=== PATIENT | male | born 1965 | race Caucasian/White ===

== ENCOUNTER 2019-04-15 14:43 | Emergency (ER) | payer OTHER ==
[~2019-04-15] VITALS: Ht 172.7 cm; Wt 95.5 kg
[2019-04-15] MEDS ORDERED: ONDANSETRON 4 MG INJ IV STA (14:58)
[2019-04-15] MEDS ORDERED: SOD CHLORIDE 0.9% 500 ML IV STA (14:58)
[2019-04-15] MEDS ORDERED: KETOROLAC 15 MG INJ IV STA (14:58)
[2019-04-15] MEDS ORDERED: ALPRAZOLAM 0.25 MG TAB PO ONE (15:00)
--- NOTE | 2019-04-15 15:00 | ERD ---
ER Documentation Chief Complaint Chief Complaint HPI This is a 53-year-old man brought [place] by [employer] officers [place] for c omplaints of body aches and chest pain. Patient is tearful and crying and states his pain is nonexertional nonradiating but located over his lower extremities and left chest. He denies cough, no shortness of breath, no fevers or chills, no vomiting or diarrhea. ROS All systems reviewed and are negative except as per history of present illness. Allergies Allergies: Coded Allergies: No Known Allergy (Unverified , 04/15/19) FmHx Family History: No diabetes Physical Exam Vitals Vital Signs Date Temp Pulse Resp B/P (MAP) Pulse Ox O2 O2 Flow FiO2 Time Delivery Rate 04/15/19 82 18 139/84 98 Room Air 16:33 (102) 04/15/19 98.0 90 18 146/90 97 15:06 (108) Physical Exam GENERAL: Well-developed, well-nourished, tearful and anxious, afebrile HEENT: Moist mucous membranes, pink conjunctiva, no cervical spine tenderness or step-off deformities, no goiter, no jaundice or icterus, extraocular movements intact without pain. No submandibular induration, and no pharyngeal erythema NEURO: Alert and oriented 3, cranial nerves II through XII intact bilaterally, pupils equal round reactive to light, no focal deficits or facial asymmetry, s ensation intact distally Strength 5/5 in upper and lower extremities bilaterally CARDIAC: Regular rate and rhythm, no murmurs rubs or gallops LUNGS: Clear bilaterally no wheezing crackles or stridor ABDOMEN: Soft nontender, no guarding, no rigidity, no rebound, no psoas sign no obturator sign. Normoactive bowel sounds SKIN: Warm and dry to touch, no abrasions, contusions, or hematomas, no lacerati ons, no ecchymosis, no target lesions, and without ulcers EXTREMITIES: No clubbing cyanosis or edema, calves are bilaterally symmetrical, no Homans sign, no popliteal cord sign. Distal pulses equal and bilateral PSYCH: Tearful, anxious Result Diagram: 04/15/19 1512 04/15/19 1512 Results 24 hrs Laboratory Tests Test 04/15/19 15:12 White Blood Count 7.6 10^3/ul Red Blood Count 4.82 10^6/ul Hemoglobin 14.5 g/dl Hematocrit 41.8 % Mean Corpuscular Volume 86.7 fl Mean Corpuscular Hemoglobin 30.1 pg Mean Corpuscular Hemoglobin Concent 34.7 g/dl Red Cell Distribution Width 12.7 % Platelet Count 225 10^3/UL Mean Platelet Volume 9.6 fl Immature Granulocytes % 0.300 % Neutrophils % 57.4 % Lymphocytes % 28.6 % Monocytes % 11.3 % Eosinophils % 2.1 % Basophils % 0.3 % Nucleated Red Blood Cells % 0.0 /100WBC Immature Granulocytes # 0.020 10^3/ul Neutrophils # 4.4 10^3/ul Lymphocytes # 2.2 10^3/ul Monocytes # 0.9 10^3/ul Eosinophils # 0.2 10^3/ul Basophils # 0.0 10^3/ul Nucleated Red Blood Cells # 0.0 10^3/ul Sodium Level 141 mmol/L Potassium Level 3.8 mmol/L Chloride Level 107 mmol/L Carbon Dioxide Level 26 mmol/L Anion Gap 8 Blood Urea Nitrogen 26 mg/dl Creatinine 1.01 mg/dl Est Glomerular Filtrat Rate mL/min > 60 mL/min Glucose Level 139 mg/dl Calcium Level 9.1 mg/dl Total Bilirubin 0.9 mg/dl Direct Bilirubin 0.00 mg/dl Indirect Bilirubin 0.9 mg/dl Aspartate Amino Transf (AST/SGOT) 30 IU/L Alanine Aminotransferase (ALT/SGPT) 29 IU/L Alkaline Phosphatase 80 IU/L Troponin I < 0.012 ng/ml Total Protein 7.3 g/dl Albumin 4.0 g/dl Globulin 3.30 g/dl Albumin/Globulin Ratio 1.21 Lipase 111 U/L Current Medications Medications Dose Sig/Scott Start Time Status Last (Trade) Ordered Route PRN Stop Time Admin Dose Reason Admin Sodium 500 ml @ Q1H STAT 04/15/19 DC 04/15/19 Chloride 500 mls/hr IV 14:58 04/15/19 15:12 15:57 Ondansetron 4 mg ONCE STAT 04/15/19 DC 04/15/19 HCl (Zofran IV 14:58 04/15/19 15:12 Inj) 15:00 Ketorolac 15 mg ONCE STAT 04/15/19 DC 04/15/19 Tromethamine IV 14:58 04/15/19 15:12 (Toradol) 15:00 Alprazolam 0.5 mg ONCE ONCE 04/15/19 DC 04/15/19 (Xanax) PO 15:00 04/15/19 15:12 15:01 Procedures/MDM IV line was established patient was placed on repairer maintenance building rhythm strip revealed a sinus rhythm at about 90 bpm with upright P and T waves. Patient was afebrile EKG performed, read by me: 92 bpm, normal sinus rhythm, normal axis, no acute ST segment changes, narrow QRS complex, with good R-wave progression in precordial leads. One AP view of the chest performed, read by me reveals no acute infiltrates, normal mediastinum, sharp costophrenic and cardiac borders, no air under the diaphragm. Otherwise unremarkable chest x-ray. I administered 500 cc normal saline IV, alprazolam 0.5 mg p.o., Toradol 15 mg IV, and Zofran 4 mg IV x1. CBC and electrolytes were normal, liver function tests were normal, troponin was negative Differential diagnoses considered, included but not limited to acute coronary syndrome, pulmonary embolism, aortic dissection, abdominal aortic aneurysm, sepsis, stroke, meningitis, encephalitis, pneumonia, appendicitis, cholecystitis, bowel obstruction, pyelonephritis, nephrolithiasis, cystitis, as well as metabolic, hematologic, and electrolyte abnormalities. As well as abscess, cellulitis, fractures, and dislocations. Patient feels much better at this time, and vital signs are normal, symptoms have improved. I did give strict instructions to return to the ED if symptoms continue or worsen, patient will otherwise follow-up with primary care physician. Patient understood instructions and agreed to plan. Disclaimer: Inadvertent spelling and grammatical errors are likely due to EHR/dictation software use and do not reflect on the overall quality of patient care. Also, please note that the electronic time recorded on this note does not necessarily reflect the actual time of the patient encounter. Departure Diagnosis: Primary Impression: Chest pain Chest pain type: unspecified Qualified Codes: R07.9 - Chest pain, unspecified Condition: LESLIE Hutchins MD Apr 15, 2019 15:00
[2019-04-15 15:06] VITALS: Ht 172.7 cm; Wt 95.5 kg
[2019-04-15 16:33] VITALS: BP 139/84; PULSE 82; RESP 18
== END 2019-04-15 16:45 ==
LOC: E/R 14:43
DX: R07.9 Chest pain, unspecified (principal)
CPT/HCPCS: 36415; 71045; 80053; 83690; 84484; 85025; 93005; 96374; 96375; 99285; J1885; J2405; J7040